=== PATIENT | female | born 1950 | race Caucasian/White ===

== ENCOUNTER 2016-10-14 13:51 | Emergency (ER) | payer MEDICARE, MEDICAID ==
[~2016-10-14] VITALS: Ht 157.5 cm; Wt 54.4 kg
[2016-10-14 14:22] VITALS: BP 100/64
== END 2016-10-14 19:40 | disposition left against medical advice (07) ==
LOC: ER 13:52
DX: M54.5 Low back pain (principal); Z53.21 Procedure and treatment not carried out due to patient leaving prior to being seen by health care provider